=== PATIENT | female | born 1975 | race African-American/Black ===

== ENCOUNTER 2017-05-05 12:05 | Emergency (ER) | payer MEDICAID ==
[~2017-05-05] VITALS: Ht 165.1 cm; Wt 56.7 kg
[2017-05-05] MEDS ORDERED: NKM (12:18)
[2017-05-05 12:20] VITALS: BP 118/78
--- NOTE | 2017-05-05 12:37 | Emergency Room Report ---
History of Present Illness General Chief Complaint: Upper Extremity Injury Source: Patient Present Illness HPI 42 yo F no sig pmhx p/w R 4th finger pain s/p getting it caught under bucket last night causing it to bend backwards. no cuts/lacerations. +c/o slight numbness to tip of finger as well as slight swelling. inc pain with movement, however still able to move it. continued to be painful this am so came into ED. denies taking any meds. no fevers/chills Allergies: Coded Allergies: No Known Allergies (Unverified , 05/05/17) Patient History Past Medical History: none Past Surgical History: none Pertinent Family History: none Last Menstrual Period: 04/23/17 Now: No Review of Systems All Other Systems: negative except mentioned in HPI Physical Exam Vital Signs Date Time Temp Pulse Resp B/P Pulse Ox O2 Delivery O2 Flow Rate FiO2 05/05/17 12:14 98.4 63 16 118/78 99 Room Air General Appearance: normal inspection, well appearing, no apparent distress, alert, GCS 15, non-toxic Head: normocephalic, atraumatic Eyes: bilateral eye EOMI, bilateral eye PERRL, bilateral eye normal inspection ENT: normal ENT inspection, normal pharynx, normal voice, moist mucus membranes Neck: normal inspection, full range of motion, supple, no bony tend Respiratory: normal inspection, lungs clear, normal breath sounds, no respiratory distress, no retraction, no wheezing, speaking full sentences, chest symmetrical Cardiovascular #1: normal inspection, regular rate, rhythm, no edema, normal capillary refill Gastrointestinal: normal inspection, non tender, soft, non-distended, no guarding Musculoskeletal: normal inspection, other - R 4th digit with mild swelling and tenderness at DIP. no gross bony deformities. limited ROM 2/2 to pain however does have ROM at DIP/PIP. FDP/FDS Intact, no subungual hematoma Neurologic: normal inspection, alert, oriented x3, responsive, estate planning attorney III-XII nml as tested, motor strength/tone normal, sensory intact, normal gait, speech normal Medical Decision Making Diagnostic Impression: Primary Impression: Finger contusion ER Course 42 yo F with R 4th finger pain s/p getting it caught last night likely finger contusion r/o fracture does not appear to be dislocated, has ROM pt refusing ucg - states had b/l tubal ligation pain control, XR, pmd follow up XR revealing no acute fx however does appear slightly hyperextended. will place finger splint and fu with ortho in 1 week Last Vital Signs Date Time Temp Pulse Resp B/P Pulse Ox O2 Delivery O2 Flow Rate FiO2 05/05/17 12:20 98.4 69 16 118/78 99 Room Air Disposition: HOME, SELF-CARE Condition: Improved Scripts Ibuprofen* (MOTRIN*) 600 Mg Tablet 600 MG ORAL Q6H Y for For Pain for 7 Days, #30 TAB Prov: Megha Raya M.D. 05/05/17 Patient Instructions: Finger Sprain, [id number] Additional Instructions: PLEASE FOLLOW UP WITH AN ORTHOPEDIC DOCTOR IN 1 WEEK Megha Raya M.D. May 05, 2017 12:37
[2017-05-05] MEDS ORDERED: IBUPROFEN600 MG ORAL (13:36)
[2017-05-05 14:09] VITALS: BP 118/78
--- NOTE | 2017-05-05 16:12 | Diagnostic Imaging Report ---
Indication: PAIN Technique: 3 views of the right fourth finger Comparison: None Findings: No acute fractures. No dislocations. The joint spaces are preserved. Impression: Negative
== END 2017-05-05 14:11 | disposition home or self-care (01) ==
LOC: EMR 12:33
DX: S60.041A Contusion of right ring finger without damage to nail, initial encounter (principal); W23.0XXA Caught, crushed, jammed, or pinched between moving objects, initial encounter; Y93.9 Activity, unspecified; Y92.9 Unspecified place or not applicable
CPT/HCPCS: 29130; 99283